=== PATIENT | male | born 1995 | race Caucasian/White ===

== ENCOUNTER 2017-02-06 22:50 | Emergency (ER) | payer OTHER ==
[~2017-02-06] VITALS: Ht 185.4 cm; Wt 88.1 kg
[~2017-02-06 22:50] MED LIST: MOTRIN800 MG PO; NOHOMEMEDS; NORCO 7.5/321 TABLET PO; ROBITUSSIN AC,T10 ML PO
[2017-02-07] MEDS ORDERED: SKELAXIN800 MG PO (01:11)
[2017-02-07] MEDS ORDERED: NAPROSYN500 MG PO (01:11)
[2017-02-07 01:26] VITALS: BP 141/85
== END 2017-02-07 01:27 | disposition home or self-care (01) ==
LOC: EME 22:50 → RME 22:50
DX: S80.01XA Contusion of right knee, initial encounter (principal); V43.52XA Car driver injured in collision with other type car in traffic accident, initial encounter; Y92.410 Unspecified street and highway as the place of occurrence of the external cause; F17.200 Nicotine dependence, unspecified, uncomplicated
CPT/HCPCS: 73564; 99281; 99283

== ENCOUNTER 2017-02-20 23:27 | Emergency (ER) | payer OTHER ==
[~2017-02-20] VITALS: Ht 185.4 cm; Wt 86.4 kg
[~2017-02-20 23:27] MED LIST changes: +NAPROSYN500 MG PO; +SKELAXIN800 MG PO
[2017-02-21 00:05] LABS: HEMATOCRIT 46.3 % (38.0-50.0); MCH 30.3 PG (29.0-34.0); MCV 86.5 FL (86-99); MEAN PLAT.VOLUME 11.5 uM^3 (9.0-12.4); PLATELET COUNT 232 K/uL (156-360); RBC DIS.WIDTH-CV 12.6 % (11.8-14.6); RBC DIS.WIDTH-SD 39.6 % (39-53); RED BLOOD COUNT 5.35 M/uL (4.00-5.50); WHITE BLOOD COUNT 8.7 K/uL (4.1-10.2)
[2017-02-21 00:13] LABS: CHLORIDE 107 mEq/L (99-109); POTASSIUM 3.9 mEq/L (3.7-5.4); SODIUM 140 mEq/L (136-147)
[2017-02-21 00:15] LABS: GLUCOSE 98 mg/dL (70-99)
[2017-02-21 00:16] LABS: ANION GAP 9 MEQ/L (2-14)
[2017-02-21 00:19] LABS: GFR ESTIMATE (CALCULATED) > 59 mL/min/
[2017-02-21 00:20] LABS: UREA NITROGEN (BUN) 10 mg/dL (9-23)
[2017-02-21 00:25] LABS: TROP-I INTERPRETATION NEGATIVE; TROPONIN-I < 0.01 ng/mL (0.0-0.30)
[2017-02-21] MEDS ORDERED: ZITHROMAX Z-PA250 MG PO (01:10)
[2017-02-21 01:32] VITALS: BP 139/88
== END 2017-02-21 01:33 | disposition home or self-care (01) ==
LOC: EME 23:27
DX: R07.89 Other chest pain (principal); F17.200 Nicotine dependence, unspecified, uncomplicated
CPT/HCPCS: 71020; 80048; 84484; 85027; 93005; 99281; 99284